=== PATIENT | male | born 1950 | race Caucasian/White ===

== ENCOUNTER 2016-09-13 08:28 | Day surgery (SDC) | payer MEDICARE, BC ==
[~2016-09-13] VITALS: Ht 167.6 cm; Wt 97.1 kg
[2016-09-13] MEDS ORDERED: SEROQUEL (09:15)
[2016-09-13] MEDS ORDERED: RISPERDAL (09:15)
[2016-09-13] MEDS ORDERED: PROPRANOLOL (09:15)
[2016-09-13] MEDS ORDERED: PROZAC (09:15)
[2016-09-13] MEDS ORDERED: AMITIZA (09:15)
[2016-09-13] MEDS ORDERED: ZANTAC (09:15)
[2016-09-13 09:20] VITALS: Ht 167.6 cm; Wt 97.1 kg
[2016-09-13 10:02] VITALS: BP 181/99; PULSE 75; RESP 10
[2016-09-13] MEDS ORDERED: MIDAZOLAM 1 MG/ML 2 ML INJ ONE (10:23)
[2016-09-13] MEDS ORDERED: LIDOCAINE 2% (SDV) 5 ML INJ ONE (10:23)
[2016-09-13] MEDS ORDERED: PROPOFOL 20 ML ONE (10:23)
[2016-09-13] MEDS ORDERED: LABETALOL HCL 20MG INJ ONE (10:35)
[2016-09-13 11:14] VITALS: BP 117/71; PULSE 62; RESP 14
[2016-09-13 11:16] VITALS: BP 121/67; PULSE 62; RESP 14
[2016-09-13 11:21] VITALS: BP 114/72; PULSE 60; RESP 14
--- NOTE | 2016-09-13 11:29 | GILP ---
DATE OF ADMISSION: 09/13/2016 DATE OF CONSULTATION: HISTORY OF PRESENT ILLNESS: A 65-year-old male undergoing this procedure for intermittent vomiting and also severe constipation, now with diarrhea. The risk of the procedure, related and unrelated c omplications, anesthetic risks, alternatives discussed with the sister and informed consent was obta ined. The patient was brought to the GI lab, sedated by the anesthesiologist. After optimum sedatio n, scope was passed with much ease into esophagus which was grossly within normal limits. LABORATORY DATA: Z-line was at 38 cm. Stomach mucosa revealed moderate to severe gastritis. Multi ple biopsies obtained. Duodenum, first and second part was within normal limits. On retroversion 2 to 3 cm hard subendothelial lesion was identified, whether this was extraluminal or truly subendothe lial it is difficult to say. Scope was then removed with good patient tolerance. IMPRESSION: 1. Moderate to severe gastritis. 2. Normal esophagus. 3. Normal duodenum. 4. Z line regular at 38 cm. 5. A 2 1/2 to 3 cm subendothelial lesion. The exact etiology is not clear, whether it is extralumi nal or truly within the muscle of the stomach wall. PLAN: Review histopathology. Continue PPI and may need EUS. COLONOSCOPY REPORT: The patient was turned around, scope was passed with much ease into the rectum and he was full of stool, advanced all the way up to 50 cm. It was solid and semi-solid stool precl uding the visibility so removed the scope. IMPRESSION: Fecal impaction with poor visibility. Plan is to place the patient on Linzess and Federico bert both combination for him to have a good bowel movement. Gastrografin enema which will be both d iagnostic and therapeutic. Dictated By: GERMANIA LAWRENCE MD PJ/NTS Conf#: [id number] DID#: [id number] CC: MESFIN LEOS MD;*EndCC*
[2016-09-13 11:35] VITALS: BP 134/23; PULSE 65; RESP 16
== END 2016-09-13 12:20 | disposition home or self-care (01) ==
LOC: GIL 08:28
PROVIDERS: ATTEND Internal Medicine Gastroenterology
DX: K29.60 Other gastritis without bleeding (principal); Z87.891 Personal history of nicotine dependence; Z88.0 Allergy status to penicillin
CPT/HCPCS: 43239; 88305; 88312; J2250

== ENCOUNTER 2018-01-26 08:56 | Inpatient (IN) | END 2018-02-13 12:35 | DRG 481 ==

== ENCOUNTER 2018-02-13 12:30 | Inpatient (IN) | END 2018-02-27 16:30 | disposition home or self-care (01) | DRG 559 ==

== ENCOUNTER 2018-04-12 06:18 | Emergency (ER) | END 2018-04-12 10:07 | disposition home or self-care (01) ==